=== PATIENT | female | born 1990 | race Caucasian/White ===

== ENCOUNTER 2020-02-13 08:00 | Inpatient (IN) ==
[2020-02-13] MEDS ORDERED: *HR* FentaNYL (PF) 100 MCG/2 ML VIAL IVP PRN (08:13)
[2020-02-13] MEDS ORDERED: miSOPROStoL 25 MCG TABLET VG PRN (08:13)
[2020-02-13] MEDS ORDERED: Lidocaine 1% 20 ML MDV INFILT PRN (08:13)
[2020-02-13] MEDS ORDERED: Famotidine 20 MG/2 ML VIAL IVP PRN (08:13)
[2020-02-13] MEDS ORDERED: Azithromycin 500 MG in 0.9 % Sodium Chloride 250 ML IVPB PRN (08:13)
[2020-02-13] MEDS ORDERED: Metoclopramide 10 MG/2 ML VIAL IVP PRN (08:13)
[2020-02-13] MEDS ORDERED: Ondansetron 4 MG/2 ML VIAL IVP PRN ×2 (08:13→10:08)
[2020-02-13] MEDS ORDERED: Naloxone 0.4 MG/ML INJ IVP PRN ×2 (08:13→10:08)
[2020-02-13] MEDS ORDERED: Ringers Solution, Lactated 1,000 ML IVC SCH (08:15)
[2020-02-13 09:08] LABS: Basophils % 0.2 %; Eosinophils # 0.1 K/mcL (0.0-0.6); Eosinophils % 0.9 %; Hematocrit 39.4 % (35.3-44.9); Hemoglobin 13.1 g/dL (11.5-15.4); Immature Granulocytes % 0.5 % (0-4); Lymphocytes # 3.2 K/mcL (0.6-4.6); Lymphocytes % 25.3 %; Mean Corpuscular HGB Conc 33.2 g/dL (31.6-35.5); Mean Corpuscular Hemoglobin 29.2 pg (28.0-33.3); Mean Corpuscular Volume 87.8 fL (83.0-100.0); Monocytes # 0.9 K/mcL (0.0-1.3); Neutrophils # 8.4 K/mcL (1.6-8.9); Platelet Count 179 K/mcL (140-400); Red Blood Count 4.49 M/mcL (3.82-4.97); Red Cell Distribution Width 13.4 % (11.5-14.5); Segmented Neutrophils % 66.1 %; White Blood Count 12.8 K/mcL (4.3-11.1)
[2020-02-13] MEDS ORDERED: miSOPROStoL 25 MCG TABLET PO STA (09:35)
[2020-02-13] MEDS ORDERED: Ropivacaine/PF 0.2% 20 ML VIAL EP ONE (10:08)
[2020-02-13] MEDS ORDERED: EPHEDrine 50 MG/ML VIAL IVP PRN (10:08)
[2020-02-13] MEDS ORDERED: *HR* FentaNYL (PF) 100 MCG/2 ML VIAL EP ONE (10:08)
[2020-02-13] MEDS ORDERED: Epidural Premix (fent/bupiv) 110 ML EP SCH (10:15)
[2020-02-13 10:19] LABS: Amphetamine Screen,Urine Negative ng/mL (Cutoff=1000); Barbiturate Screen,Urine Negative ng/mL (Cutoff=200); Benzodiazepines Screen,Urine Negative ng/mL (Cutoff=200); Cannabinoid Screen,Urine Negative ng/mL (Cutoff = 50); Cocaine Screen,Urine Negative ng/mL (Cutoff= 300); Opiate Screen,Urine Negative ng/mL (Cutoff=300); Phencyclidine Screen,Urine Negative ng/mL (Cutoff=25)
[2020-02-13] MEDS ORDERED: Oxytocin 20 units/ LR 1000 mL 20 UNIT/1,000 ML BAG IVC SCH ×2 (13:15→22:30)
[2020-02-13] MEDS ORDERED: Ropivacaine/PF 0.2% 20 ML VIAL ONE ×2 (15:58→20:22)
[2020-02-13] MEDS ORDERED: Acetaminophen 325 MG TABLET PO PRN (22:30)
[2020-02-13] MEDS ORDERED: Lanolin 7 G OINT...G. TP PRN (22:30)
[2020-02-13] MEDS ORDERED: Benzocaine/Menthol 56 GM AEROSOL SPRAY TP PRN (22:30)
[2020-02-14] MEDS: Ibuprofen 600 MG TABLET PO PRN ×3 (01:37→20:17)
[2020-02-14 04:34] LABS: Basophils % 0.1 %; Eosinophils # 0.1 K/mcL (0.0-0.6); Eosinophils % 0.6 %; Hematocrit 37.9 % (35.3-44.9); Hemoglobin 12.8 g/dL (11.5-15.4); Immature Granulocytes % 0.5 % (0-4); Lymphocytes # 3.7 K/mcL (0.6-4.6); Lymphocytes % 26.2 %; Mean Corpuscular HGB Conc 33.8 g/dL (31.6-35.5); Mean Corpuscular Hemoglobin 29.6 pg (28.0-33.3); Mean Corpuscular Volume 87.5 fL (83.0-100.0); Mean Platelet Volume 12.5 fL (9.4-12.4); Monocytes # 0.9 K/mcL (0.0-1.3); Monocytes % 6.3 %; Neutrophils # 9.4 K/mcL (1.6-8.9); Platelet Count 154 K/mcL (140-400); Red Blood Count 4.33 M/mcL (3.82-4.97); Red Cell Distribution Width 13.5 % (11.5-14.5); Segmented Neutrophils % 66.3 %; White Blood Count 14.2 K/mcL (4.3-11.1)
[2020-02-14] MEDS ORDERED: Prenatal Vit/FA 1 EACH TABLET PO SCH (09:00)
[2020-02-14 20:03] VITALS: BP 110/79
== END 2020-02-14 22:39 | disposition home or self-care (01) | DRG 560 ==
LOC: 1NENULAB 08:04 → 1NENUOBS 02-14 00:10
PROVIDERS: ADMIT Obstetrics & Gynecology; ATTEND Obstetrics & Gynecology